=== PATIENT | female | born 1960 | race Two or more races ===

== ENCOUNTER 2024-08-23 07:20 | Outpatient (CLI) | payer OTHER ==
[2024-08-23 07:58] LABS: URINE APPEARANCE Clear; URINE BILIRRUBIN Negative (NEGATIVE); URINE BLOOD Negative; URINE COLOR Yellow; URINE GLUCOSE Negative (NEGATIVE); URINE KETONE Negative (NEGATIVE); URINE LEUKOCYTE Negative; URINE NITRATE Negative; URINE PROTEIN Negative (NEGATIVE)
[2024-08-23 07:59] LABS: URINE BACTERIA 312.1 uL (0.0-1933); URINE EPITHELIAL CELLS 13.9 uL (0.0-38.8); URINE RBC 15.4 uL (0.0-20.8); URINE WBC 6.1 uL (0.0-23.2)
[2024-08-23 08:56] LABS: ALBUMIN 3.7 gm/dL (3.4-5.0); BILIRUBIN TOTAL 0.47 mg/dL (0.3-1.2); CALCIUM 9.7 mg/dL (8.5-10.1); CHOL HDL RATIO 3.2 (0-5.0); CREATININE SERUM 0.66 mg/dL (0.55-1.02); GFR 91.05; GLOBULINA 3.3 G/DL (2.4-3.5); POTASSIUM 4.58 mEq/L (3.5-5.1); TSH 2.53 uIU/mL (0.358-3.74)
== END 2024-08-23 07:25 | disposition home or self-care (01) ==
LOC: LAB 07:20
PROVIDERS: ATTEND General Practice
DX: E03.8 Other specified hypothyroidism (principal); I10 Essential (primary) hypertension; E78.5 Hyperlipidemia, unspecified; N39.0 Urinary tract infection, site not specified; Z85.850 Personal history of malignant neoplasm of thyroid; E55.9 Vitamin D deficiency, unspecified; Z12.11 Encounter for screening for malignant neoplasm of colon; E78.00 Pure hypercholesterolemia, unspecified

== ENCOUNTER 2024-10-18 07:13 | Outpatient (CLI) | payer OTHER ==
[2024-10-18 08:23] LABS: PH,URINE 6.5 (5.0-8.0); URINE APPEARANCE Clear; URINE BILIRRUBIN Negative (NEGATIVE); URINE BLOOD Negative; URINE COLOR Yellow; URINE GLUCOSE Negative (NEGATIVE); URINE KETONE Negative (NEGATIVE); URINE LEUKOCYTE Small; URINE NITRATE Negative; URINE PROTEIN Negative (NEGATIVE)
[2024-10-18 08:24] LABS: URINE BACTERIA 2484.3 uL (0.0-1933); URINE EPITHELIAL CELLS 86.5 uL (0.0-38.8); URINE RBC 16.2 uL (0.0-20.8); URINE WBC 36.8 uL (0.0-23.2)
[2024-10-18 08:25] LABS: HEMATOCRIT 43.3 % (36.0-45.00); HEMOGLOBIN 14.4 g/dL (12.0-15.00); MEAN CELL VOLUME 88.6 fL (80.00-100.00); MEAN CORPUSCULAR HEMOGLOBIN 29.5 pg (27.00-32.0); MEAN CORPUSCULAR HGB CONC 33.3 g/dl (32.0-36.0); PLATELET COUNT 214 K/uL (150-450); RED BLOOD COUNT 4.89 M/uL (4.00-6.00); RED CELL DISTRIBUTION WIDTH 14.2 % (11.5-14.5)
[2024-10-18 08:43] LABS: URINE CAST 0.29 uL (0.0-1.40)
[2024-10-18 09:10] LABS: ALBUMIN 3.7 gm/dL (3.4-5.0); BILIRUBIN TOTAL 0.62 mg/dL (0.3-1.2); CALCIUM 9.3 mg/dL (8.5-10.1); CHOL HDL RATIO 3.5 (0-5.0); CREATININE SERUM 0.68 mg/dL (0.55-1.02); GFR 87.96; GLOBULINA 3.2 G/DL (2.4-3.5); POTASSIUM 3.89 mEq/L (3.5-5.1); TOTAL PROTEIN 6.9 gm/dL (6.4-8.2); TSH 3.34 uIU/mL (0.358-3.74)
== END 2024-10-18 07:17 | disposition home or self-care (01) ==
LOC: LAB 07:13
DX: R73.01 Impaired fasting glucose (principal); E03.8 Other specified hypothyroidism; I10 Essential (primary) hypertension; E78.01 Familial hypercholesterolemia; E11.9 Type 2 diabetes mellitus without complications

== ENCOUNTER 2024-11-04 08:20 | Emergency (ER) | payer OTHER ==
[~2024-11-04] VITALS: Ht 167.6 cm; Wt 77.1 kg
[2024-11-04] MEDS ORDERED: ASPIRIN81 MG (08:44)
[2024-11-04] MEDS ORDERED: LEVOTHYROXINE25 MCG (08:45)
[2024-11-04] MEDS ORDERED: KETOROLAC TROMETHAMINE 60 MG VIAL IM STA (09:11)
[2024-11-04] MEDS ORDERED: ORPHENADRINE CITRATE 30 MG/ML AMPUL IM STA (09:12)
== END 2024-11-04 09:55 | disposition home or self-care (01) ==
LOC: ER 08:22
DX: M54.50 Low back pain, unspecified (principal); Z88.0 Allergy status to penicillin

== ENCOUNTER 2024-11-04 10:17 | Outpatient (CLI) | payer OTHER ==
[~2024-11-04 10:17] MED LIST: ASPIRIN81 MG; LEVOTHYROXINE25 MCG
== END 2024-11-04 10:21 | disposition home or self-care (01) ==
LOC: MAMO-SONO 10:17
PROVIDERS: ATTEND General Practice
DX: R92.30 Dense breasts, unspecified (principal); Z12.31 Encounter for screening mammogram for malignant neoplasm of breast; E04.1 Nontoxic single thyroid nodule

== ENCOUNTER 2024-11-09 13:05 | Emergency (ER) | payer OTHER ==
[~2024-11-09] VITALS: Ht 167.6 cm; Wt 81.2 kg
[2024-11-09 13:26] VITALS: BP 127/78; O2SAT 96
[2024-11-09 15:59] LABS: HEMATOCRIT 42.8 % (36.0-45.00); HEMOGLOBIN 14.1 g/dL (12.0-15.00); MEAN CELL VOLUME 88.8 fL (80.00-100.00); MEAN CORPUSCULAR HEMOGLOBIN 29.2 pg (27.00-32.0); MEAN CORPUSCULAR HGB CONC 32.9 g/dl (32.0-36.0); PLATELET COUNT 214 K/uL (150-450); RED BLOOD COUNT 4.82 M/uL (4.00-6.00); RED CELL DISTRIBUTION WIDTH 14.2 % (11.5-14.5)
[2024-11-09 16:30] LABS: CALCIUM 9.4 mg/dL (8.5-10.1); CREATININE SERUM 0.71 mg/dL (0.55-1.02); GFR 83.69; POTASSIUM 4.32 mEq/L (3.5-5.1)
[2024-11-09 16:58] LABS: URINE APPEARANCE Clear; URINE BILIRRUBIN Negative (NEGATIVE); URINE BLOOD Negative; URINE COLOR Yellow; URINE GLUCOSE Negative (NEGATIVE); URINE KETONE Negative (NEGATIVE); URINE LEUKOCYTE Negative; URINE NITRATE Negative; URINE PROTEIN Negative (NEGATIVE); URINE UROBILINOGEN 0.2 E.U./dl
[2024-11-09 17:03] LABS: URINE BACTERIA 457.6 uL (0.0-1933); URINE EPITHELIAL CELLS 3.7 uL (0.0-38.8); URINE RBC 20.9 uL (0.0-20.8); URINE WBC 7.5 uL (0.0-23.2)
[2024-11-09] MEDS ORDERED: MIRALAX510 GM PO (20:19)
[2024-11-09] MEDS ORDERED: BACLOFEN10 MG PO (20:22)
[2024-11-09] MEDS ORDERED: DICLOFENAC SODI75 MG PO (20:22)
[2024-11-09] MEDS ORDERED: KETOROLAC TROMETHAMINE 60 MG VIAL IM ONE (20:30)
[2024-11-09] MEDS ORDERED: ORPHENADRINE CITRATE 30 MG/ML AMPUL IM ONE (20:30)
[2024-11-09] MEDS ORDERED: DEXAMETHASONE SODIUM PHOSPHATE 4 MG/ML VIAL IM ONE (20:30)
[2024-11-09] MEDS ORDERED: KETOROLAC TROMETHAMINE 30 MG VIAL IV ONE (20:45)
[2024-11-09] MEDS ORDERED: ORPHENADRINE CITRATE 30 MG/ML AMPUL IV ONE (20:45)
== END 2024-11-09 21:33 | disposition home or self-care (01) ==
LOC: ER 13:06
PROVIDERS: General Practice
DX: K59.00 Constipation, unspecified (principal); K57.30 Diverticulosis of large intestine without perforation or abscess without bleeding; R16.0 Hepatomegaly, not elsewhere classified; K76.0 Fatty (change of) liver, not elsewhere classified; M62.838 Other muscle spasm; Z88.0 Allergy status to penicillin

== ENCOUNTER 2024-11-27 07:52 | Outpatient (CLI) | payer OTHER ==
[~2024-11-27 07:52] MED LIST changes: +BACLOFEN10 MG PO; +DICLOFENAC SODI75 MG PO; +MIRALAX510 GM PO
[2024-11-27 09:35] LABS: CREATININE SERUM 0.66 mg/dL (0.55-1.02)
== END 2024-11-27 08:13 | disposition home or self-care (01) ==
LOC: LAB 07:52
PROVIDERS: ATTEND Radiology Diagnostic Radiology
DX: K62.5 Hemorrhage of anus and rectum (principal)

== ENCOUNTER → 2024-12-04 06:12 | Outpatient (CLI) | payer OTHER ==
[2024-12-04 07:03] LABS: HEMATOCRIT 40.4 % (36.0-45.00); HEMOGLOBIN 13.9 g/dL (12.0-15.00); MEAN CELL VOLUME 86.4 fL (80.00-100.00); MEAN CORPUSCULAR HEMOGLOBIN 29.7 pg (27.00-32.0); MEAN CORPUSCULAR HGB CONC 34.4 g/dl (32.0-36.0); PLATELET COUNT 209 K/uL (150-450); RED BLOOD COUNT 4.67 M/uL (4.00-6.00); RED CELL DISTRIBUTION WIDTH 14.5 % (11.5-14.5)
[2024-12-04 12:14] LABS: ALBUMIN 3.5 gm/dL (3.4-5.0); CALCIUM 8.8 mg/dL (8.5-10.1); CREATININE SERUM 0.74 mg/dL (0.55-1.02); GFR 79.52; PHOSPHOROUS 4.4 mg/dL (2.5-4.9); POTASSIUM 3.61 mEq/L (3.5-5.1)
== END | disposition home or self-care (01) ==
LOC: LAB 06:12
PROVIDERS: ATTEND Surgery
DX: K62.5 Hemorrhage of anus and rectum (principal); K62.89 Other specified diseases of anus and rectum; Z86.0100 Personal history of colon polyps, unspecified; K60.1 Chronic anal fissure; K64.8 Other hemorrhoids

== ENCOUNTER 2024-12-04 07:09 | Outpatient (CLI) | payer OTHER | END 2024-12-04 07:13 | disposition home or self-care (01) | LOC: MRI 07:09 | PROVIDERS: ATTEND Surgery | DX: K62.5 Hemorrhage of anus and rectum (principal); K62.89 Other specified diseases of anus and rectum; M53.3 Sacrococcygeal disorders, not elsewhere classified; Z86.0100 Personal history of colon polyps, unspecified; K60.1 Chronic anal fissure; K64.8 Other hemorrhoids | CPT/HCPCS: 72196 ==